=== PATIENT | male | born 1955 | race Caucasian/White ===

== ENCOUNTER 2018-07-25 06:20 | Inpatient (IN) ==
--- NOTE | 2018-07-25 06:48 | Anesthesia Evaluation PreOp ---
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 Any Significant HX Other Medical History: Other (obesity, hx stomach ulcer) Anesthesia History: No Prior Anesthetic Complications, Past Anesthesia (right TOSHIA) Alcohol Use: none Drug use: none Medications and Allergies Aspirin [Lo-Dose Aspirin EC] 81 mg PO DAILY 07/23/18 [History] Cholecalciferol (Vitamin D3) [Vitamin D] 1,000 unit PO BID 07/23/18 [History] Valsartan [Diovan] 80 mg PO DAILY 07/23/18 [History] Allergy/AdvReac Type Severity Reaction Status Date / Time No Known Allergies Allergy Verified 07/23/18 13:11 - Meds/Allergy Pre-op Review Medications Reviewed: Yes Allergies Reviewed: Yes Beta Blockers on Current Med List: No Anesthesia Results - Labs Laboratory Tests 07/19/18 07/19/18 07/19/18 16:27 16:27 16:27 Hgb 15.7 Hct 48.9 Plt Count 241 PT 11.1 INR 1.0 APTT 34.2 Sodium 142 Potassium 4.6 BUN 12 Creatinine 1.00 - Imaging EKG: report reviewed (NSR) Anesthesia Exam Weight: 102kg BMI 35 NPO (# of Hours): 8 - HEENT Pupil (Motor): EOMI Mallampati: II Teeth: Edentulous Denture Type: Upper: Complete, Lower: Complete Oral Opening: Greater than 3 - 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
[2018-07-25] MEDS ORDERED: Heparin 1,000 UNITS/500 mL 500 ML ONE (06:49)
[2018-07-25] MEDS ORDERED: *HR* Succinylcholine 200 MG/10 ML VIAL IVP ONE (06:53)
[2018-07-25] MEDS ORDERED: Ondansetron 4 MG/2 ML VIAL ONE (06:53)
[2018-07-25] MEDS ORDERED: *HR* Labetalol 20 MG/4 ML SYRINGE IVP ONE (06:53)
[2018-07-25] MEDS ORDERED: Lidocaine -MPF 4% 5 ML AMPUL ONE (06:53)
[2018-07-25] MEDS ORDERED: Dexamethasone 4 MG/ML VIAL ONE ×2 (06:53→09:03)
[2018-07-25] MEDS ORDERED: *HR* Rocuronium Bromide 50 MG/5 ML VIAL ONE ×2 (06:53→08:13)
[2018-07-25] MEDS ORDERED: Lidocaine -MPF 2% 2 ML VIAL ONE ×3 (06:53→10:08)
[2018-07-25] MEDS ORDERED: *HR* Remifentanil 1 MG VIAL IVP ONE ×2 (06:54→09:24)
[2018-07-25] MEDS ORDERED: *HR* FentaNYL (PF) 100 MCG/2 ML VIAL ONE (06:54)
[2018-07-25] MEDS ORDERED: *HR* Midazolam HCl 2 MG/2 ML VIAL ONE (06:54)
[2018-07-25] MEDS ORDERED: *HR* Propofol 200 MG/20 ML VIAL IVP ONE (06:54)
[2018-07-25] MEDS ORDERED: *HR* Meperidine 25 MG/ML SYRINGE IVP PRN (07:01)
[2018-07-25] MEDS ORDERED: *HR* OxyCODONE/APAP 5/325 TABLET PO PRN (07:01)
[2018-07-25] MEDS ORDERED: *HR* FentaNYL (PF) 100 MCG/2 ML VIAL IVP PRN (07:01)
[2018-07-25] MEDS ORDERED: traMADol 50 MG TABLET PO PRN (07:01)
[2018-07-25] MEDS ORDERED: Albuterol 2.5 MG/3 ML NEBULIZER IH ONE (07:06)
[2018-07-25] MEDS ORDERED: CeFAZolin Syr 2,000MG/20 ML 2,000 MG/20 ML SYRINGE IVPB ONE (07:06)
[2018-07-25] MEDS ORDERED: *HR* Phenylephrine 10 MG/ML VIAL ONE (07:07)
[2018-07-25] MEDS ORDERED: NiCARdipine 2.5 MG/10 ML Syringe IVPB ONE (07:19)
[2018-07-25] MEDS ORDERED: *HR* PHENYLEPHRINE 1,000 MCG/10 ML SYRINGE IVP ONE (07:20)
[2018-07-25] MEDS ORDERED: EPHEDrine 50 MG/ML VIAL ONE (07:21)
[2018-07-25] MEDS ORDERED: Bupivacaine-MPF 0.25% 10 ML VIAL ONE ×2 (07:21→08:06)
[2018-07-25] MEDS ORDERED: Heparin 1,000 UNITS/500 mL 1,000 ML ONE (07:22)
[2018-07-25] MEDS: Ringers Solution, Lactated 1,000 ML IVC SCH ×2 (07:28→10:31)
--- NOTE | 2018-07-25 07:28 | History & Physical Report ---
Date of Encounter: 07/25/18 Time of Encounter: 07:20 24 Hour HP Update - Instructions Instructions: If the History and Physical is less than 30 days old and was completed prior to A.M. admission and or procedure and has NOT been updated on calendar day of procedure please complete this update prior to performing procedure. - Update Patient reports changes in Medical Condition: No Changes in examination, assessment, or condition: No Changes in Medication: No Preop tests/diagnostics Reviewed: Yes Surgery Remains Indicated: Yes Consent for Planned Operative Procedure(s) Verified: Yes - Pre-Operative Checklist Preoperative Checklist Indicated: Yes Prophylactic Antibiotic Ordered: Yes Home Medications Include Beta Daniel: No Beta Daniel Taken Today (Day of Surgery): No Beta Daniel Taken Yesterday (Day Prior to Surgery): No Is VTE Prophylaxis Indicated?: Yes
[2018-07-25] MEDS ORDERED: ceFAZolin 1,000 MG, Sodium Chloride IRRigation 1,000 ML IR ONE (07:45)
[2018-07-25] MEDS ORDERED: SUGAMMADEX SODIUM 500 MG/5 ML VIAL IV ONE (10:07)
[2018-07-25] MEDS ORDERED: *HR* HYDROMORPHONE 2 MG/ML VIAL ONE (10:53)
--- NOTE | 2018-07-25 11:28 | Operative Note ---
Date of procedure: 07/25/18 Pre-op diagnosis: carotid stenosis with TIA Post-op diagnosis: same Procedure: right carotid endarterectomy with 8 Fr shunt and patch angioplasty Complications: 0 Anesthesia: GETA Surgeon: Trae Frances Was there an investigative assistant present: No Estimated blood loss (cc): 126 Specimen: 0 Condition: stable Disposition: PACU Procedure in Detail: History Mr. Ashby is a 63-year-old white male who was seen because of markedly abnormal carotid duplex scan and left hand symptoms. Duplex scan suggested a critical lesion of the right internal carotid artery in the 80-99% range. Patient underwent an angiogram earlier this week which confirmed that finding. There is dramatic left to right intra cranial flow due to the critical right internal carotid artery stenosis. The left carotid artery had no hemodynamically significant stenosis. The patient THE operating room for repair of this critical right carotid artery stenosis. Procedure After informed consent was obtained the patient was taken to the operating room. General endotracheal anesthesia was established under arterial line pressure monitoring. The right neck was then sterilely prepped and draped. A timeout protocol was observed. An oblique incision was made along the anterior border of the right sternocleidomastoid muscle. Dissection was carried down to the carotid sheath. The sheath was exposed and selectively dissected. The nervous structures were identified and preserved. The carotid arteries were then selectively dissected and controlled with vessel loops. 5000 units of heparin were administered intravenously. After 3 minutes later the vessels were clamped with the internal carotid artery clamped first. Using an 11 blade knife and Solis scissors the artery was opened beginning at the distal common carotid artery and carried up into the internal carotid artery. An 8-Frisian shunt was then inserted atraumatically. Patency of the shunt was confirmed by the use of intraoperative Doppler. Evaluation of the plaque revealed a thick relatively homogeneous plaque. These stenosis in the proximal right internal carotid artery was indeed critical. The plaque were extended more proximally and distally than depicted on the angiogram. Therefore rather extensive endarterectomy was performed and it required extension of the arteriotomy both proximally and distally. After the plaque was removed the bed of the vessel was carefully inspected for any residual debris. The area was copiously irrigated with heparinized saline. A bovine pericardial patch angioplasty was then sewn in position. 2 6-0 Prolene sutures were used for this closure. Leaving a small space open on the suture line the shunt was clamped divided and removed. The final few sutures were then placed. Right internal carotid artery was then allowed to back bleed and then reclamped. The external and common were opened and finally the internal was reopened. There was no hemodynamic distress with this maneuver. There were excellent pulses and Doppler signals through the carotid system. The wound was then irrigated and hemostasis achieved. A superficial cervical block using half percent Marcaine was performed. The incision was then closed in layers using absorbable suture. No drains were placed. The patient was reversed from anesthesia. He was extubated In the operating room. He was found to be neurologically intact. He was taken from the operating room to the recovery room in stable condition.
--- NOTE | 2018-07-25 12:04 | Anesthesia Evaluation Post Op ---
Date of Encounter: 07/25/18 Time of Encounter: 12:03 - Vital Signs Vital Signs: Vital Signs/O2 Sat/Glucose, Most Recent Temp Pulse Resp BP Pulse Ox 97.5 F L 92 18 129/84 96 07/25/18 11:26 07/25/18 11:46 07/25/18 11:46 07/25/18 11:46 07/25/18 11:46 - Lungs Lungs: Clear Ascult./Percussion - Airway Airway: Non-obstructed - Cardiovascular Regular Rate - Mental Status Mental Status: Alert & Oriented, Answers Appropriately - Pain Pain Scale: 0 - Nausea Vomiting Nausea Vomiting: Not Present - Hydration Hydration: NPO, Mitchell catheter - Discharge PostOp Status: Transfer Patient to floor
[2018-07-25] MEDS ORDERED: *HR* HYDROcodone/Acet 5/325 mg TABLET PO PRN (13:02)
[2018-07-25] MEDS ORDERED: Naloxone 0.4 MG/ML INJ IVP PRN (13:02)
[2018-07-25] MEDS ORDERED: *HR* Labetalol 20 MG/4 ML SYRINGE IVP PRN (13:02)
[2018-07-25] MEDS ORDERED: Acetaminophen 325 MG TABLET PO PRN (13:02)
[2018-07-25] MEDS ORDERED: Ondansetron 4 MG/2 ML VIAL IVP PRN (13:02)
[2018-07-25] MEDS: Cholecalciferol (D-3) 1,000 UNIT TABLET PO SCH (21:39)
[2018-07-26 03:30] LABS: Basophils % 0.1 %; Eosinophils % 0.1 %; Hematocrit 43.2 % (37.5-50.1); Hemoglobin 14.2 g/dL (12.9-16.9); Immature Granulocytes % 0.6 % (0-4); Mean Corpuscular HGB Conc 32.9 g/dL (31.6-35.5); Mean Corpuscular Hemoglobin 29.8 pg (28.0-33.3); Mean Corpuscular Volume 90.8 fL (83.0-100.0); Mean Platelet Volume 9.8 fL (9.4-12.4); Monocytes # 1.1 K/mcL (0.0-1.3); Monocytes % 6.4 %; Platelet Count 233 K/mcL (140-400); Red Blood Count 4.76 M/mcL (4.19-5.50); Red Cell Distribution Width 14.6 % (11.5-14.5); Segmented Neutrophils % 86.8 %
[2018-07-26 03:32] LABS: Neutrophils # 14.8 K/mcL (1.6-8.9)
[2018-07-26 03:41] LABS: BUN/Creatinine Ratio 19 (6-26); Blood Urea Nitrogen 15 mg/dL (8-23); Calcium 8.8 mg/dL (8.6-10.3); Carbon Dioxide 22 mEq/L (23-29); Chloride 106 mEq/L (98-107); Glucose 131 mg/dL (70-105); Osmolality,Calculated 287 (280-300); Potassium 4.3 mEq/L (3.5-5.1); Sodium 137 mEq/L (136-145); eGFR For African Americans > 60 (> 60); eGFR For Non-African Americans > 60 (> 60)
[2018-07-26] MEDS: Cholecalciferol (D-3) 1,000 UNIT TABLET PO SCH (08:09)
[2018-07-26] MEDS ORDERED: Valsartan 80 MG TABLET PO SCH (09:00)
[2018-07-26] MEDS ORDERED: Aspirin Enteric Coated 81 MG Tablet PO SCH (09:00)
[2018-07-26 09:01] VITALS: BP 147/74
--- NOTE | 2018-07-26 09:47 | Discharge Summary ---
Date of Encounter: 07/26/18 Time of Encounter: 09:44 - Discharge Diagnosis (1) Carotid artery stenosis Priority: Primary Status: Acute Comments: Patient had left hand numbness and markedly abnormal carotid duplex scan. This led to an urgent consult to vascular surgery and then an angiogram. The patient's wound have 99% right internal carotid artery stenosis. Patient underwent a right carotid endarterectomy. Qualifiers: Laterality: right Qualified Code(s): I65.21 - Occlusion and stenosis of right carotid artery (2) DJD (degenerative joint disease) Priority: Secondary Status: Chronic Comments: History of hip surgery replacement Qualifiers: Osteoarthritis location: hip Osteoarthritis type: primary Laterality: left Qualified Code(s): M16.12 - Unilateral primary osteoarthritis, left hip (3) Tobacco abuse Priority: Secondary Status: Chronic Comments: History of tobacco use - Hospital Course Hospital course: Mr. Ashby is a 63 year old male With markedly abnormal duplex scan. Critical stenosis confirmed by angiogram. Patient underwent a right carotid endarterectomy under general endotracheal anesthesia. As original room and to [place] patient was sent to the intensive care unit following surgery. He had an uneventful night. Patient was doing well. He was felt fit for discharge to home on the morning of postoperative day #1. Instructions were given in regards to diet and exercise and medications and wound care. Patient will be started initially on atorvastatin 40 mg daily at bedtime. This will be adjusted by the patient's primary care physician. He was also instructed to continue the aspirin on a daily basis. All questions were answered. - Time Spent with Patient Total time spent providing and/or coordinating discharge services: - Discharge Medications Prescriptions: New Atorvastatin [Lipitor] 40 mg PO HS #30 tablet Continued Valsartan [Diovan] 80 mg PO DAILY Aspirin [Lo-Dose Aspirin EC] 81 mg PO DAILY Cholecalciferol (Vitamin D3) [Vitamin D3] 1,000 unit PO BID Home Medications: Aspirin [Lo-Dose Aspirin EC] 81 mg PO DAILY 07/23/18 [History] Cholecalciferol (Vitamin D3) [Vitamin D3] 1,000 unit PO BID 07/23/18 [History] Valsartan [Diovan] 80 mg PO DAILY 07/23/18 [History] Atorvastatin [Lipitor] 40 mg PO HS #30 tablet 07/26/18 [Rx] Allergies/Adverse Reactions: Allergy/AdvReac Type Severity Reaction Status Date / Time No Known Allergies Allergy Verified 07/25/18 07:29 Date of admission: 07/25/18 12:27 Primary care physician: Bishop Trinh MD Consults: None Procedure(s) Performed: Right carotid endarterectomy with patch angioplasty Discharging clinician: Trae Frances Anticipated date of discharge: 07/26/18 Exam Vital Signs, Last 4 Hours Temp Pulse Resp BP Pulse Ox 07/26/18 08:48 147/74 07/26/18 08:00 68 17 97 07/26/18 07:26 97.7 F 07/26/18 06:00 60 20 139/80 94 General: Present: Conversant, No Apparent Distress, Well developed, Well nourished HEENT: Present: Atraumatic, Normocephaly, Trachea midline Neck: Absent: JVD Cardiac: Present: Reg Rate and Rhythm, Normal S1 and S2, No Murmur Lungs: Present: Normal Breath Sounds Neuro: Present: Alert and responsive, No focal deficits noted, Cranial nerves grossly intact, Motor nerves grossly intact, Sensory nerves grossly intact Vascular: Present: Surgical incisions (Right neck incision is clean and dry. No hematoma. No ecchymosis.) Skin: Present: No rashes noted on visualized skin - Patient Status Disposition: Home, Self-Care Condition: Good Functional capacity at discharge: independent ambulation Overall status at discharge: patient is progressing back to baseline - Discharge Instructions Follow Up With: Bishop Trinh MD [Primary Care Provider] - Trae Frances MD [Partnered Physician] - (Follow-up with Dr. Frances in 2-3 weeks.) Additional Instructions: Keep right neck incision dry for total of 5 days following surgery Use ice pack on right neck for 48 hours following surgery at home No lifting greater than 10 pounds. No driving. No manual labor. The patient may walk inside and outside. Patient may use stairs as tolerated. Patient may be a passenger in a car. Patient is to follow up with Dr. Frances in 2-3 weeks. Continue aspirin therapy on a daily basis. Begin atorvastatin 40 mg by mouth daily at bedtime. - Diet and Activity Activity: increase activity as tolerated Diet: low fat, low cholesterol
== END 2018-07-26 10:50 | disposition home or self-care (01) | DRG 39 ==
LOC: SAMDAY 06:20 → ICNU 12:27
PROVIDERS: ADMIT Surgery Vascular Surgery; ATTEND Surgery Vascular Surgery